=== PATIENT | female | born 1960 ===

== ENCOUNTER 2022-12-02 07:53 | Day surgery (SDC) | payer OTHER ==
[~2022-12-02] VITALS: Ht 157.5 cm; Wt 53.5 kg
[~2022-12-02 07:53] MED LIST: CRESTOR20 MG PO; TENORMIN50 M1 PO
[2022-12-02] MEDS ORDERED: OXYC1TAB9 PO (12:55)
== END 2022-12-02 18:20 | disposition home or self-care (01) ==
LOC: CIR.AMB 07:53
PROVIDERS: ATTEND Surgery
DX: K60.1 Chronic anal fissure (principal); K62.4 Stenosis of anus and rectum; K62.89 Other specified diseases of anus and rectum; K64.4 Residual hemorrhoidal skin tags; K64.8 Other hemorrhoids; Z20.822 Contact with and (suspected) exposure to COVID-19